=== PATIENT | female | born 1980 | race Caucasian/White ===

== ENCOUNTER → 2018-05-03 | Outpatient (CLI) | payer OTHER ==
[~2018-05-03] MED LIST: ACHYD1T PO; AGM875T PO; AZIT-21 PO; BSC10SU PO; CEPH500C PO; CETI10TA20 PO; CIPR-225 PO; CPR500T PO; FRS325T PO; HYDR-3583 PO; HYDR1CAP2 PO; HYOS0.1283 SL; Ibuprofen PO; LBT200T PO; METR500T PO; NAPR275T51 PO; PREN1TAB39 PO
--- NOTE | 2018-05-03 11:31 | Diagnostic Imaging Report ---
PROCEDURE: CT neck soft tissue without contrast. TECHNIQUE: Multiple contiguous axial images were obtained through the neck without the use of intravenous contrast. INDICATION: Right parotid gland swelling. FINDINGS: Unenhanced images of the neck reveal no evidence of parotid gland mass or fluid collection. Note is made of dystrophic calcification along the subcutaneous tissues of the external auditory canals. Submandibular and salivary glands are unremarkable in appearance. Occasional nonenlarged deep cervical lymph nodes are seen bilaterally with general symmetry. Thyroid gland has a normal appearance. Airway is unremarkable. There is straightening of cervical lordosis without evidence of acute cervical osseous abnormality. Temporomandibular joints are unremarkable, bilaterally. There may be mild centrilobular emphysema noted in the lung apices. In addition, there is an approximately 0.5 cm spiculated focus in the left apex. This could be due to scarring, however the finding is nonspecific. IMPRESSION: Essentially unremarkable CT scan of the neck with symmetric mildly prominent deep cervical lymph nodes. There is no evidence of salivary gland lesion or obstruction. There appears to be mild centrilobular emphysema in the lung apices with an approximately 0.5 cm irregular nodule in the left apex. This could represent scarring. Consideration could be given to thoracic CT for further assessment. Dictated by: Dictated on workstation # [id number]
== END ==
LOC: RAD 10:05
PROVIDERS: ATTEND Otolaryngology Otolaryngology/Facial Plastic Surgery
DX: J43.9 Emphysema, unspecified (principal); K11.8 Other diseases of salivary glands
CPT/HCPCS: 70490

== ENCOUNTER → 2018-05-09 | Outpatient (CLI) | payer OTHER ==
--- NOTE | 2018-05-09 08:21 | Diagnostic Imaging Report ---
INDICATION: Left upper lobe lung nodule. CT chest obtained without IV contrast. There is no prior chest CT for comparison. Comparison made to the images of the soft tissue neck CT of 05/03/2018. FINDINGS: There are no enlarged hilar nodes. There is a mildly enlarged node between the innominate artery and right brachiocephalic vein measured about 1.7 x 1.0 cm. No other enlarged mediastinal nodes are seen. There is no pleural or pericardial fluid. There are no overt bony abnormalities. Visualized portions of the upper abdomen were unremarkable. There are no appreciably enlarged axillary nodes. Lung parenchymal windows demonstrate mild apical emphysematous changes. There is some parenchymal scarring in the left apex. There is a nodule versus scar in the left upper lobe, measuring about 5 mm. This is best seen on image 13 of series 2. Lung warner are otherwise clear. IMPRESSION: Small nodule versus scar in the left temporal lobe measuring 5 mm. Would recommend followup study in 6 months which may represent scar versus granuloma versus small neoplasm. There are mild emphysematous changes in the lung apices. There is a borderline prominent node in the superior mediastinum as mentioned above, this could also be reevaluated at followup. Dictated by: Dictated on workstation # [id number]
== END ==
LOC: RAD 07:38
PROVIDERS: ATTEND Otolaryngology Otolaryngology/Facial Plastic Surgery
DX: J43.9 Emphysema, unspecified (principal)
CPT/HCPCS: 71250

== ENCOUNTER 2018-10-01 05:14 | Emergency (ER) | payer OTHER ==
[~2018-10-01] VITALS: Ht 154.9 cm; Wt 66.7 kg
--- NOTE | 2018-10-01 05:46 | ED Lower Extremity ---
General Chief Complaint: Lower Extremity Stated Complaint: LEFT KNEE INJURY,PAIN Nursing Triage Note: left knee pain Nursing Sepsis Screen: No Definite Risk Source: patient Exam Limitations: no limitations History of Present Illness Date Seen by Provider: Oct 01, 2018 Time Seen by Provider: 05:22 Initial Comments Here with complaint of left knee pain. Reports that she [place] the skating rink last night with her child and she fell onto her left knee. States her leg was bent completely. Reports pain with straightening her leg or intentional movements. Note swelling to the knee medial and lateral of the patella on the upper portion. Does have a small superficial abrasion to the knee cap area. Denies other injury. Onset: yesterday Severity: moderate Pain/Injury Location: left knee Method of Injury: fell Modifying Factors: Improves With Immobilization; Worse With Movement Allergies and Home Medications Allergies Coded Allergies: iodine (Verified Allergy, Unknown, 09/04/10) Home Medications No Active Prescriptions or Reported Meds Patient Home Medication List Home Medication List Reviewed: Yes Review of Systems Constitutional: see HPI; No chills, No fever Respiratory: no symptoms reported Cardiovascular: no symptoms reported Musculoskeletal: see HPI, joint pain, joint swelling Skin: No change in color; lesions Psychiatric/Neurological: No Symptoms Reported Past Gpxcplk-Gqnpma-Ztllfm Hx Past Med/Social Hx: Reviewed Nursing Past Med/Soc Hx Patient Social History Alcohol Use: Denies Use Recreational Drug Use: No Smoking Status: Former Smoker Type Used: Cigarettes 2nd Hand Smoke Exposure: No Recent Foreign Travel: No Contact w/Someone Who Travel: No Recent Infectious Disease Expo: No Recent Hopitalizations: No Immunizations Up To Date Tetanus Booster (TDap): Less than 5yrs PED Vaccines UTD: Yes Date of Influenza Vaccine: Aug 31, 2018 Seasonal Allergies Seasonal Allergies: No Past Medical History Surgeries: Yes (D&C X2, WISDOM TEETH EXTRACTION) Respiratory: No Cardiac: Yes (HTN WITH /PRE-ECLAMPSIA ) Hypertension Neurological: No : No Reproductive Disorders: No Sexually Transmitted Disease: No HIV/AIDS: No Genitourinary: Yes (renal insufficiency) Gastrointestinal: Yes Gastroesophageal Reflux Musculoskeletal: No Endocrine: No Cancer: No Psychosocial: No Integumentary: No Blood Disorders: No Adverse Reaction/Blood Tranf: No Family Medical History Reviewed Nursing Family Hx Diabetes mellitus 19 FATHER FH: ovarian cancer 19 MOTHER Hypertension 19 FATHER No Family History of: AIDS Abdominal aortic aneurysm [place]'s disease Alcoholism Alzheimer's disease Aphasia Arthritis Asthma Cancer of mouth Cardiovascular disease Cataracts Colon cancer Completed stroke Congenital disease Congenital heart disease Coronary thrombosis Cystic fibrosis Deafness or hearing loss Dementia Drug abuse Dysphasia Fibrocystic disease of breast Gastroenteritis Glaucoma Headache disorder Hypercholesterolemia Infertility Kidney disease Myocardial infarction Neoplasm Not obtainable due to adoption Osteoporosis Parkinson's disease Prostate cancer Psychosocial problem Respiratory disorder Seizure disorder Severe allergy Thyroid disease Tuberculosis Visual disorder Physical Exam Vital Signs Vital Signs - First Documented 10/01/18 05:20 Temp 99.0 Pulse 106 Resp 18 B/P (MAP) 144/105 (118) Pulse Ox 100 O2 Delivery Room Air Capillary Refill : Less Than 3 Seconds Height, Weight, BMI Height: 5'1" Weight: 147lbs. 0oz. 66.234852lj; 28.91 BMI Method:Stated General Appearance: WD/WN, no apparent distress Cardiovascular: regular rate, rhythm, no murmur Respiratory: lungs clear, normal breath sounds Gastrointestinal: non tender, soft Knees: right knee non-tender, right knee normal inspection, right knee normal range of motion, right knee no evidence of injury; left knee joint effusion, left knee soft tissue tenderness, left knee swelling, left knee other (patellar tenderness. Negative laxity. Negative drawer. She is able to straight leg raise but has fairly significant patellar pain with that.) Feet: bilateral foot non-tender, bilateral foot normal inspection, bilateral foot normal range of motion, bilateral foot no evidence of injury Neurologic/Tendon: normal sensation, normal motor functions, normal tendon functions Neurologic/Psychiatric: alert, oriented x 3 Skin: warm/dry, other (small 1 x 2 cm abrasion to the anterior knee) Progress/Results/Core Measures Results/Orders My Orders Orders - GABRIEL RODARTE MD Knee, Left, 3 Views (10/01/18 05:27) Knee, Left, 4 Views Or > (10/01/18 05:46) Vital Signs/I&O 10/01/18 05:20 Temp 99.0 Pulse 106 Resp 18 B/P (MAP) 144/105 (118) Pulse Ox 100 O2 Delivery Room Air Blood Pressure Mean: 118 Progress Progress Note : Progress Note Seen and evaluated. X-ray left knee. Patellar fracture noted. Knee immobilizer and crutches given. Ice pack given. Mario wrap placed. Discharged home with return precautions. Patient verbalize understanding instructions and agreement with plan. Diagnostic Imaging Diagonstic Imaging: Xray Plain Films/CT/US/NM/MRI: knee Comments Distal patellar fracture nondisplaced. Departure Impression Primary Impression: Closed fracture of left patella Qualified Codes: S82.035A - Nondisplaced transverse fracture of left patella, initial encounter for closed fracture Disposition: HOME, SELF-CARE Condition: Stable Departure-Patient Inst. Decision time for Depature: 05:50 Referrals: GLENDA RODRIGUEZ MD, DANIEL J MD (PCP/Family) Primary Care Physician DIANA URRUTIA MICHAEL P MD Patient Instructions: Patella Fracture (DC) Add. Discharge Instructions: All discharge instructions reviewed with patient and/or family. Voiced understanding. Take medications as directed. You may take Tylenol/acetaminophen 1000 mg every 6 hours as needed for pain but do not take that with the prescribed pain medicine as both have acetaminophen in them. Call orthopedist of your choice tomorrow morning for appointment this week. Use knee immobilizer at all times when moving about. He may use ice packs over the areas of concern 20 minutes per hour as needed to reduce swelling. Use Mario wrap as needed to reduce swelling. Try to keep the leg elevated as much as possible over the next few days to reduce swelling. You may take a baby aspirin daily while immobilized. Return for worse pain, swelling, weakness, breathing problems or other concerns as needed. Scripts Hydrocodone Bit/Acetaminophen (Hydrocodone/Acetaminophen 5/325mg Tablet) 1 Tab Tab 1 EACH PO Q4-6HR PRN for PAIN-MODERATE MDD 10, #12 TAB 0 Refills Prov: GABRIEL RODARTE MD 10/01/18 GABRIEL RODARTE MD Oct 01, 2018 05:46
[2018-10-01] MEDS ORDERED: ACHD5005 PO (06:03)
[2018-10-01] MEDS ORDERED: RX-HYDROCODONE/APAP 5/325 MG #4 TAB PK PO ONE (06:03)
[2018-10-01 06:12] VITALS: BP 144/105
[2018-10-01] MEDS ORDERED: RX-HYDROCODONE/APAP 5/325 MG #4 TAB PK PO PRN (06:15)
--- NOTE | 2018-10-01 07:00 | Diagnostic Imaging Report ---
INDICATION: Left knee injury Four views of the left knee show a transverse fracture of the patella with 3 mm of diastases. IMPRESSION: Minimally distracted transverse fracture of the patella. Dictated by: Dictated on workstation # [id number]
== END 2018-10-01 06:12 | disposition home or self-care (01) ==
LOC: EDUNIT# 05:14 → ER 05:17
DX: S82.035A Nondisplaced transverse fracture of left patella, initial encounter for closed fracture (principal); I10 Essential (primary) hypertension; K21.9 Gastro-esophageal reflux disease without esophagitis; Z91.041 Radiographic dye allergy status; Z87.891 Personal history of nicotine dependence; W18.39XA Other fall on same level, initial encounter; Y92.331 Roller skating rink as the place of occurrence of the external cause
CPT/HCPCS: 73564

== ENCOUNTER → 2018-11-08 | Outpatient (CLI) | payer OTHER ==
[~2018-11-08] MED LIST changes: +ACHD5005 PO
--- NOTE | 2018-11-08 08:57 | Diagnostic Imaging Report ---
PROCEDURE: CT chest without contrast. TECHNIQUE: Multiple contiguous axial images were obtained through the chest without the use of intravenous contrast. INDICATION: Lung nodules The previous CT chest exam performed on 05/09/2018 noted a 5 MM parenchymal opacity in the left upper lung. It was not certain whether this is related to a small nodule or scar formation. That finding is again evident on this study and does not appear to have changed significantly (image 12/62). The lungs are otherwise generally clear and well aerated. There is no other parenchymal lung mass identified and there is no sign of failure, pneumonia or a pleural effusion to indicate an acute abnormality. The heart size is within normal limits and stable when compared to the prior study. There are no coronary artery calcifications evident. The aorta is not abnormally dilated. The previous exam did note a 1.7 x 1.0 CM lymph node interposed between the brachiocephalic vein and innominate artery. That finding is again evident and now measures 0.8 x 1.7 CM. There is also a pretracheal node at the level of the tiffanie measuring 1.1 x 1.9 CM. On the prior exam this node measured 1.2 x 1.9 CM. The thyroid gland were visualized is unremarkable. There is no obvious breast mass. The bone windows show no sign of a fracture or of a destructive lesion. The sections through the upper abdomen fails to show any evidence for an acute abnormality. IMPRESSION: 1. The nodular density in the left upper lung and the mediastinal nodes seen previously appear stable. Most likely they are benign. I would recommend that a six-month followup exam be performed for continued evaluation. 2. There is no acute cardiopulmonary abnormality noted. Dictated by: Dictated on workstation # [id number]
== END ==
LOC: RAD 07:32
PROVIDERS: ATTEND Otolaryngology Otolaryngology/Facial Plastic Surgery
DX: J98.4 Other disorders of lung (principal); R91.8 Other nonspecific abnormal finding of lung field
CPT/HCPCS: 71250

== ENCOUNTER → 2019-05-23 | Outpatient (CLI) | payer OTHER ==
--- NOTE | 2019-05-23 13:57 | Diagnostic Imaging Report ---
PROCEDURE: CT chest without contrast. TECHNIQUE: Multiple contiguous axial images were obtained through the chest without the use of intravenous contrast. Auto Exposure Controls were utilized during the CT exam to meet ALARA standards for radiation dose reduction. INDICATION: Left lung nodule, followup. COMPARISON: Correlation is made with prior CT from 11/08/2018. FINDINGS: No axillary lymphadenopathy is seen. Previously noted paratracheal lymph node measures 1.6 x 1.0 cm compared with 1.9 x 1.1 cm. No pericardial or pleural fluid is identified. A left upper lobe nodule is stable at 5 mm. No additional pulmonary nodules or masses are seen. No infiltrates are identified. The upper abdomen is unremarkable. IMPRESSION: Stable noncontrast CT chest when compared with prior exam from 11/08/2018. Mildly prominent mediastinal lymph node as well as left upper lobe nodule are stable. This now shows one year of stability. Additional followup in one year is recommended to show continued stability. Dictated by: Dictated on workstation # [id number]
== END ==
LOC: RAD 12:44
PROVIDERS: ATTEND Otolaryngology Otolaryngology/Facial Plastic Surgery
DX: R91.1 Solitary pulmonary nodule (principal); R59.0 Localized enlarged lymph nodes
CPT/HCPCS: 71250

== ENCOUNTER → 2020-05-09 | Outpatient (CLI) | payer OTHER ==
--- NOTE | 2020-05-09 16:55 | Diagnostic Imaging Report ---
EXAMINATION: CT Chest without contrast. TECHNIQUE: Multiple contiguous axial images were obtained through the chest without the use of intravenous contrast. All CT scans use one or more of the following dose optimizing techniques: automated exposure control, MA and/or KvP adjustment based on a patient size and exam type, or iterative reconstruction. HISTORY: Lung nodule. COMPARISON: 05/23/2019. FINDINGS: There is no edema or pneumonia. No pleural effusion. No pneumothorax. There is a stable 5 mm nodule in the left apex. Lungs are moderately emphysematous. Heart size is normal. There are no coronary artery calcifications. No pericardial effusion. Aorta is normal in caliber. There is no axillary or supraclavicular lymphadenopathy. There are stable mildly prominent mediastinal lymph nodes. Limited views of the upper abdomen show a small stone in the gallbladder. There are no suspicious osseus lesions. IMPRESSION: 1. Stable 5 mm nodule in the left apex, consistent with a benign etiology given its long-term stability. Dictated on workstation # [id number]
== END ==
LOC: RAD 15:22
PROVIDERS: ATTEND Otolaryngology Otolaryngology/Facial Plastic Surgery
DX: R91.1 Solitary pulmonary nodule (principal)
CPT/HCPCS: 71250

== ENCOUNTER → 2021-07-30 | Outpatient (CLI) | payer OTHER ==
--- NOTE | 2021-07-30 12:07 | Diagnostic Imaging Report ---
Indication: Routine screening. No prior mammograms are available for comparison. This is a baseline study. 2-D and 3-D bilateral screening mammography was performed with CAD. Scattered fibroglandular densities are identified bilaterally. No spiculated mass or malignant-appearing microcalcifications are seen. Axillae are unremarkable. IMPRESSION: BI-RADS Category 1 No mammographic features suspicious for malignancy are identified. ACR BI-RADS Category 1: Negative. Result letter will be mailed to the patient. Note: At least 10% of breast cancer is not imaged by mammography. Dictated by: Dictated on workstation # [id number]
== END ==
LOC: RAD 10:45
PROVIDERS: ATTEND Family Medicine
DX: Z12.31 Encounter for screening mammogram for malignant neoplasm of breast (principal)
CPT/HCPCS: 77063; 77067

== ENCOUNTER → 2023-01-13 | Outpatient (CLI) | payer OTHER ==
--- NOTE | 2023-01-14 09:15 | Diagnostic Imaging Report ---
3D bilateral screening mammogram. The current study was also evaluated with a Computed Aided Detection (CAD) system. This study was compared to the prior exam of 07/30/2021. There are no current complaints. FINDINGS: The fibroglandular tissue in both breasts is heterogeneously dense. This does limit the sensitivity of this exam. When compared to the previous study there does not appear to have been any significant change. There is no primary or secondary sign of malignancy noted. IMPRESSION: 1. There is no evidence for malignancy. 2. The patient should have her annual bilateral screening mammogram on schedule in December 2023. BI-RADS ACR CATEGORY: 1 NEGATIVE ACR BI-RADS Category 1: Negative. Result letter will be mailed to the patient. Note: At least 10% of breast cancer is not imaged by mammography. Dictated by: Dictated on workstation # [id number]
== END ==
LOC: RAD 10:27
PROVIDERS: ATTEND Family Medicine
DX: Z12.31 Encounter for screening mammogram for malignant neoplasm of breast (principal)
CPT/HCPCS: 77063; 77067